=== PATIENT | male | born 1960 | race Caucasian/White ===

== ENCOUNTER 2016-09-27 16:48 | Inpatient (IN) | payer OTHER ==
[~2016-09-27] VITALS: Ht 172.7 cm; Wt 71.9 kg
[~2016-09-27 16:48] MED LIST: BUPR100SR PO; LIB25 PO
[2016-09-27] MEDS ORDERED: GABA-529 PO (17:06)
[2016-09-27] MEDS ORDERED: QUET25TA PO (17:06)
[2016-09-27 18:13] LABS: BASOPHILS % (AUTO) 0.8 % (0.0-2.0); EOSINOPHILS % (AUTO) 5.7 % (1.0-6.0); HEMATOCRIT 37.9 % (41-53); HEMOGLOBIN 12.7 g/dL (13.5-17.5); LYMPHOCYTES # (AUTO) 6.4 K/uL (1.0-4.8); LYMPHOCYTES % (AUTO) 65.6 % (22.0-44.0); MEAN CORPUSCULAR HEMOGLOBIN 31.6 pg (26.0-34.0); MEAN CORPUSCULAR HGB CONC 33.4 G/dL (31.0-37.0); MEAN CORPUSCULAR VOLUME 95 fL (80-100); MONOCYTES # (AUTO) 0.4 K/uL (0.1-1.0); MONOCYTES % (AUTO) 4.3 % (2.0-9.0); NEUTROPHILS # (AUTO) 2.3 K/uL (1.8-7.7); NEUTROPHILS % (AUTO) 23.6 % (40.0-70.0); RED BLOOD CELL COUNT(AUTO) 4.01 MIL/uL (4.50-5.90); RED CELL DISTRIBUTION WIDTH 15.7 % (11.5-14.5); WHITE BLOOD COUNT (AUTO) 9.7 K/uL (4.5-11.0)
[2016-09-27 18:24] LABS: ANION GAP 10 mmol/L (8-16); CALCIUM, TOTAL 8.2 mg/dL (8.8-10.5); CARBON DIOXIDE 25 mmol/L (22-29); CHLORIDE 103 mmol/L (98-107); CREATININE 0.81 mg/dL (0.60-1.30); GLOMERULAR FILTR. RATE CALC > 60 mL/min (>60); POTASSIUM 3.7 mmol/L (3.5-5.1); SODIUM SERUM 138 mmol/L (136-145); UREA NITROGEN, BLOOD 9 mg/dL (7-18)
[2016-09-27 18:25] LABS: PROTHROMBIN TIME 10.1 SEC (9.4-11.6)
[2016-09-27 18:49] LABS: ALANINE AMINOTRANSFERASE 27 U/L (12-78); ALBUMIN 3.1 g/dL (3.4-5.0); ASPARTATE AMINOTRANSFERASE 32 U/L (15-37); BILIRUBIN,TOTAL 0.3 mg/dL (0.1-1.0); CREATINE KINASE MB 1.4 ng/mL (0-5); CREATINE KINASE, TOTAL 159 U/L (39-308); TOTAL PROTEIN, SERUM 7.2 g/dL (6.4-8.2)
[2016-09-27 18:53] LABS: B-TYPE NATRIURETIC PEPTIDE 57 pg/mL (0-100)
[2016-09-27] MEDS ORDERED: MAGNESIUM SULFATE 2 GM, MVI, ADULT NO.1 WITH VIT K 10 ML, THIAMINE HCL 100 MG, FOLIC AC... IV ONE ×5 (19:00)
[2016-09-27] MEDS ORDERED: LORazepam 2 MG/ML VIAL IVP ONE (19:00)
[2016-09-27 19:30] LABS: PLATELET COUNT (AUTO) 82 K/uL (150-450)
[2016-09-27 20:25] LABS: THYROID STIMULATING HORMONE 1.03 uIU/mL (0.36-3.74)
[2016-09-27] MEDS ORDERED: SODIUM CHLORIDE 0.9% 1,000 ML IV ONE (21:30)
[2016-09-27] MEDS ORDERED: 0.9% SODIUM CHLORIDE 10 ML SYRINGE IVP PRN (21:45)
[2016-09-27] MEDS ORDERED: ACETAMINOPHEN 325 MG TABLET PO PRN (21:45)
[2016-09-27] MEDS ORDERED: ONDANSETRON HCL 4 MG/2 ML VIAL IVP PRN (21:45)
[2016-09-27] MEDS ORDERED: DILTIAZEM HCL 5 MG/ML 5 ML VIAL IVP ONE (23:30)
[2016-09-28] VITALS (7 sets, daily range): BP systolic 97–110; BP diastolic 56–68
[2016-09-28] MEDS ORDERED: PNEUMOCOCCAL VACCINE POLYVALENT 0.5 ML VIAL [PPSV23] IM ONE (04:00)
[2016-09-28] MEDS ORDERED: ChlordiazePOXIDE HCL 25 MG CAPSULE PO PRN (06:15)
[2016-09-28] MEDS ORDERED: DEXTROSE 50%-WATER 25 GM/50 ML SYRINGE IVP PRN (06:15)
[2016-09-28] MEDS ORDERED: INSULIN ASPART 100 UNITS/ML SQ PRN (06:15)
[2016-09-28 07:05] LABS: ALANINE AMINOTRANSFERASE 23 U/L (12-78); ALBUMIN 2.8 g/dL (3.4-5.0); ANION GAP 8 mmol/L (8-16); ASPARTATE AMINOTRANSFERASE 25 U/L (15-37); BILIRUBIN,TOTAL 0.5 mg/dL (0.1-1.0); CALCIUM, TOTAL 7.8 mg/dL (8.8-10.5); CARBON DIOXIDE 25 mmol/L (22-29); CHLORIDE 107 mmol/L (98-107); CREATININE 0.72 mg/dL (0.60-1.30); GLOMERULAR FILTR. RATE CALC > 60 mL/min (>60); POTASSIUM 3.5 mmol/L (3.5-5.1); SODIUM SERUM 140 mmol/L (136-145); TOTAL PROTEIN, SERUM 6.2 g/dL (6.4-8.2); UREA NITROGEN, BLOOD 7 mg/dL (7-18)
[2016-09-28 07:08] LABS: BASOPHILS # (AUTO) 0.04 K/uL (0.00-0.20); BASOPHILS % (AUTO) 0.5 % (0.0-2.0); EOSINOPHILS # (AUTO) 0.49 K/uL (0.00-0.70); EOSINOPHILS % (AUTO) 5.58 % (1.0-6.0); HEMATOCRIT 35.4 % (41-53); HEMOGLOBIN 11.9 g/dL (13.5-17.5); LYMPHOCYTES # (AUTO) 5.3 K/uL (1.0-4.8); LYMPHOCYTES % (AUTO) 60.2 % (22.0-44.0); MEAN CORPUSCULAR HGB CONC 33.8 G/dL (31.0-37.0); MEAN CORPUSCULAR VOLUME 95 fL (80-100); MONOCYTES # (AUTO) 0.4 K/uL (0.1-1.0); MONOCYTES % (AUTO) 4.6 % (2.0-9.0); NEUTROPHILS # (AUTO) 2.5 K/uL (1.8-7.7); NEUTROPHILS % (AUTO) 29.1 % (40.0-70.0); PLATELET COUNT (AUTO) 79 K/uL (150-450); RED BLOOD CELL COUNT(AUTO) 3.74 MIL/uL (4.50-5.90); RED CELL DISTRIBUTION WIDTH 16.2 % (11.5-14.5); WHITE BLOOD COUNT (AUTO) 8.7 K/uL (4.5-11.0)
[2016-09-28 08:48] LABS: GLUCOSE,POINT OF CARE 99 MG/DL (70-110)
[2016-09-28] MEDS: SODIUM CHLORIDE 0.9% 1,000 ML IV SCH ×2 (08:49→17:53)
[2016-09-28] MEDS: GABAPENTIN 100 MG CAPSULE PO SCH ×3 (08:50→20:27)
[2016-09-28] MEDS: MULTIVITAMINS, THERAPEUTIC TABLET PO SCH (08:50)
[2016-09-28] MEDS: BuPROPion HCL 100 MG SR TABLET PO SCH ×2 (08:50→20:28)
[2016-09-28] MEDS: FOLIC ACID 1 MG TABLET PO SCH (08:50)
[2016-09-28] MEDS: THIAMINE HCL 100 MG TABLET PO SCH (08:58)
[2016-09-28] MEDS: QUEtiapine FUMARATE 25 MG TABLET PO SCH ×3 (08:58→20:27)
[2016-09-28] MEDS ORDERED: THIAMINE HCL 100 MG/ML 2ML VIAL IM SCH (09:00)
[2016-09-28 14:52] LABS: GLUCOSE,POINT OF CARE 99 MG/DL (70-110)
[2016-09-29] MEDS: SODIUM CHLORIDE 0.9% 1,000 ML IV SCH (03:41)
[2016-09-29 04:41] VITALS: BP 105/59
[2016-09-29 06:37] LABS: BASOPHILS % (AUTO) 0.6 % (0.0-2.0); HEMATOCRIT 37.9 % (41-53); HEMOGLOBIN 12.4 g/dL (13.5-17.5); LYMPHOCYTES # (AUTO) 6.1 K/uL (1.0-4.8); LYMPHOCYTES % (AUTO) 60.9 % (22.0-44.0); MEAN CORPUSCULAR HEMOGLOBIN 31.3 pg (26.0-34.0); MEAN CORPUSCULAR HGB CONC 32.6 G/dL (31.0-37.0); MEAN CORPUSCULAR VOLUME 96 fL (80-100); MONOCYTES # (AUTO) 0.4 K/uL (0.1-1.0); MONOCYTES % (AUTO) 4.3 % (2.0-9.0); NEUTROPHILS # (AUTO) 2.9 K/uL (1.8-7.7); NEUTROPHILS % (AUTO) 29.2 % (40.0-70.0); PLATELET COUNT (AUTO) 83 K/uL (150-450); RED BLOOD CELL COUNT(AUTO) 3.95 MIL/uL (4.50-5.90); RED CELL DISTRIBUTION WIDTH 16.3 % (11.5-14.5); WHITE BLOOD COUNT (AUTO) 10.1 K/uL (4.5-11.0)
[2016-09-29 06:47] LABS: ANION GAP 9 mmol/L (8-16); CARBON DIOXIDE 25 mmol/L (22-29); CHLORIDE 107 mmol/L (98-107); CREATININE 0.74 mg/dL (0.60-1.30); GLOMERULAR FILTR. RATE CALC > 60 mL/min (>60); POTASSIUM 3.8 mmol/L (3.5-5.1); SODIUM SERUM 141 mmol/L (136-145); UREA NITROGEN, BLOOD 9 mg/dL (7-18)
[2016-09-29] MEDS ORDERED: ChlordiazePOXIDE HCL 25 MG CAPSULE PO PRN (07:00)
[2016-09-29 07:27] LABS: GLUCOSE,POINT OF CARE 93 MG/DL (70-110)
[2016-09-29 07:27] LABS: GLUCOSE,POINT OF CARE 128 MG/DL (70-110)
[2016-09-29 07:50] VITALS: BP 110/72
[2016-09-29] MEDS: QUEtiapine FUMARATE 25 MG TABLET PO SCH (09:00)
[2016-09-29] MEDS: FOLIC ACID 1 MG TABLET PO SCH (09:08)
[2016-09-29] MEDS: MULTIVITAMINS, THERAPEUTIC TABLET PO SCH (09:08)
[2016-09-29] MEDS: GABAPENTIN 100 MG CAPSULE PO SCH (09:08)
[2016-09-29] MEDS: BuPROPion HCL 100 MG SR TABLET PO SCH (09:08)
[2016-09-29] MEDS: ChlordiazePOXIDE HCL 25 MG CAPSULE PO SCH ×2 (09:08→14:03)
[2016-09-29] MEDS: THIAMINE HCL 100 MG TABLET PO SCH (09:08)
[2016-09-29 11:12] VITALS: BP 110/63
[2016-09-29 12:42] LABS: GLUCOSE,POINT OF CARE 98 MG/DL (70-110)
[2016-10-01] MEDS ORDERED: ChlordiazePOXIDE HCL 10 MG CAPSULE PO PRN (07:00)
[2016-10-01] MEDS ORDERED: ChlordiazePOXIDE HCL 10 MG CAPSULE PO SCH (09:00)
[2016-10-02] MEDS ORDERED: ChlordiazePOXIDE HCL 10 MG CAPSULE PO PRN (07:00)
== END 2016-09-29 14:55 | disposition home or self-care (01) | DRG 773 ==
LOC: EMS 16:56 → 5N 21:58
PROVIDERS: ADMIT Internal Medicine; ATTEND Internal Medicine
DX: F10.239 Alcohol dependence with withdrawal, unspecified (principal); F11.10 Opioid abuse, uncomplicated; E43 Unspecified severe protein-calorie malnutrition; R56.9 Unspecified convulsions; I95.9 Hypotension, unspecified; D64.9 Anemia, unspecified; R00.0 Tachycardia, unspecified; F99 Mental disorder, not otherwise specified; F32.9 Major depressive disorder, single episode, unspecified; F17.210 Nicotine dependence, cigarettes, uncomplicated; Y90.0 Blood alcohol level of less than 20 mg/100 ml; Z53.29 Procedure and treatment not carried out because of patient's decision for other reasons; F19.10 Other psychoactive substance abuse, uncomplicated; F20.9 Schizophrenia, unspecified; Z68.24 Body mass index [BMI] 24.0-24.9, adult; Z88.0 Allergy status to penicillin; Z28.21 Immunization not carried out because of patient refusal
CPT/HCPCS: 82962; 84443; 90471; 93005; 96361; 96365; 96366; 96375; 99285; G0480; J2060; J3411; J3475; J3490; J7030

== ENCOUNTER 2017-04-20 07:39 | Emergency (ER) | payer OTHER ==
[~2017-04-20] VITALS: Ht 165.1 cm; Wt 72.7 kg
[~2017-04-20 07:39] MED LIST changes: +GABA-529 PO; -LIB25 PO; +QUET25TA PO
[2017-04-20 07:58] VITALS: BP 104/73
[2017-04-20] MEDS ORDERED: PERTUSS(ACELL),DIPH,TET VAC/PF 0.5 ML VIAL IM ONE (08:15)
== END 2017-04-20 08:44 | disposition home or self-care (01) ==
LOC: EMS 07:41
DX: S61.214A Laceration without foreign body of right ring finger without damage to nail, initial encounter (principal); F17.210 Nicotine dependence, cigarettes, uncomplicated; Z88.0 Allergy status to penicillin; W45.8XXA Other foreign body or object entering through skin, initial encounter; Y93.89 Activity, other specified; Y92.89 Other specified places as the place of occurrence of the external cause; Y99.8 Other external cause status
CPT/HCPCS: 90471; 90715; 99283

== ENCOUNTER 2017-04-28 09:38 | Emergency (ER) | payer OTHER ==
[~2017-04-28] VITALS: Ht 172.7 cm; Wt 70.0 kg
[2017-04-28] MEDS ORDERED: SODIUM CHLORIDE 0.9% 1,000 ML IV ONE (10:30)
[2017-04-28 10:32] LABS: BASOPHILS # (AUTO) 0.08 K/uL (0.00-0.20); BASOPHILS % (AUTO) 1.3 % (0.0-2.0); EOSINOPHILS # (AUTO) 0.23 K/uL (0.00-0.70); EOSINOPHILS % (AUTO) 3.63 % (1.0-6.0); HEMATOCRIT 37.6 % (41-53); HEMOGLOBIN 12.4 g/dL (13.5-17.5); LYMPHOCYTES % (AUTO) 47.9 % (22.0-44.0); MEAN CORPUSCULAR HEMOGLOBIN 31.5 pg (26.0-34.0); MEAN CORPUSCULAR HGB CONC 32.9 G/dL (31.0-37.0); MEAN CORPUSCULAR VOLUME 96 fL (80-100); MONOCYTES # (AUTO) 0.6 K/uL (0.1-1.0); MONOCYTES % (AUTO) 9.2 % (2.0-9.0); NEUTROPHILS # (AUTO) 2.4 K/uL (1.8-7.7); NEUTROPHILS % (AUTO) 37.9 % (40.0-70.0); PLATELET COUNT (AUTO) 162 K/uL (150-450); RED BLOOD CELL COUNT(AUTO) 3.92 MIL/uL (4.50-5.90); RED CELL DISTRIBUTION WIDTH 18.6 % (11.5-14.5); WHITE BLOOD COUNT (AUTO) 6.2 K/uL (4.5-11.0)
[2017-04-28 10:52] LABS: ANION GAP 9 mmol/L (8-16); CALCIUM, TOTAL 9.3 mg/dL (8.8-10.5); CARBON DIOXIDE 29 mmol/L (22-29); CHLORIDE 104 mmol/L (98-107); CREATININE 0.99 mg/dL (0.60-1.30); GLOMERULAR FILTR. RATE CALC > 60 mL/min (>60); POTASSIUM 3.7 mmol/L (3.5-5.1); SODIUM SERUM 142 mmol/L (136-145); UREA NITROGEN, BLOOD 18 mg/dL (7-18)
[2017-04-28 10:57] LABS: ALANINE AMINOTRANSFERASE 42 U/L (12-78); ALBUMIN 3.6 g/dL (3.4-5.0); ASPARTATE AMINOTRANSFERASE 31 U/L (15-37); BILIRUBIN,TOTAL 0.4 mg/dL (0.1-1.0); TOTAL PROTEIN, SERUM 8.3 g/dL (6.4-8.2)
[2017-04-28 11:30] LABS: RBC MORPHOLOGY COMMENT ABNORMAL RBC MORPH
[2017-04-28] MEDS ORDERED: QUET200T PO (11:54)
[2017-04-28] MEDS ORDERED: GABA-533 PO (11:54)
[2017-04-28] MEDS ORDERED: KETOROLAC TROMETHAMINE 30 MG/ML VIAL IVP ONE (12:00)
[2017-04-28 12:04] LABS: GLUCOSE,POINT OF CARE 86 MG/DL (70-110)
[2017-04-28 12:36] VITALS: BP 98/71
== END 2017-04-28 13:22 | disposition home or self-care (01) ==
LOC: EMS 09:38
DX: R42 Dizziness and giddiness (principal); M79.641 Pain in right hand; M79.642 Pain in left hand; F17.210 Nicotine dependence, cigarettes, uncomplicated
CPT/HCPCS: 36415; 71010; 80053; 80307; 82948; 82962; 83690; 84484; 85025; 93005; 96361; 96374; 99285; G0480; J1885; J7030

== ENCOUNTER 2017-05-04 09:36 | Inpatient (IN) | payer OTHER ==
[~2017-05-04] VITALS: Ht 169.2 cm; Wt 78.0 kg
[~2017-05-04 09:36] MED LIST changes: -GABA-529 PO; +GABA-533 PO; +QUET200T PO; -QUET25TA PO
[2017-05-04] MEDS ORDERED: BUSP5TAB20 PO (09:52)
[2017-05-04 11:11] LABS: BASOPHILS % (AUTO) 1.4 % (0.0-2.0); EOSINOPHILS % (AUTO) 4.7 % (1.0-6.0); HEMATOCRIT 30.2 % (41-53); LYMPHOCYTES % (AUTO) 49.2 % (22.0-44.0); MEAN CORPUSCULAR HEMOGLOBIN 31.7 pg (26.0-34.0); MEAN CORPUSCULAR HGB CONC 33.2 G/dL (31.0-37.0); MEAN CORPUSCULAR VOLUME 95 fL (80-100); MONOCYTES # (AUTO) 0.6 K/uL (0.1-1.0); MONOCYTES % (AUTO) 6.1 % (2.0-9.0); NEUTROPHILS # (AUTO) 3.9 K/uL (1.8-7.7); NEUTROPHILS % (AUTO) 38.6 % (40.0-70.0); PLATELET COUNT (AUTO) 226 K/uL (150-450); RED BLOOD CELL COUNT(AUTO) 3.16 MIL/uL (4.50-5.90); RED CELL DISTRIBUTION WIDTH 18.8 % (11.5-14.5); WHITE BLOOD COUNT (AUTO) 10.2 K/uL (4.5-11.0)
[2017-05-04] MEDS ORDERED: BUSP10TA23 PO (11:20)
[2017-05-04 11:23] LABS: ANION GAP 5 mmol/L (8-16); CALCIUM, TOTAL 8.5 mg/dL (8.8-10.5); CARBON DIOXIDE 27 mmol/L (22-29); CHLORIDE 106 mmol/L (98-107); CREATININE 0.87 mg/dL (0.60-1.30); GLOMERULAR FILTR. RATE CALC > 60 mL/min (>60); POTASSIUM 4.4 mmol/L (3.5-5.1); SODIUM SERUM 138 mmol/L (136-145); UREA NITROGEN, BLOOD 16 mg/dL (7-18)
[2017-05-04 11:29] LABS: ALANINE AMINOTRANSFERASE 33 U/L (12-78); ASPARTATE AMINOTRANSFERASE 31 U/L (15-37); BILIRUBIN,TOTAL 0.3 mg/dL (0.1-1.0); CREATINE KINASE, TOTAL 70 U/L (39-308); TOTAL PROTEIN, SERUM 6.5 g/dL (6.4-8.2)
[2017-05-04] MEDS ORDERED: ALBUTEROL SULFATE 2.5 MG/0.5 ML NEB SOLUTION NEB ONE (11:30)
[2017-05-04] MEDS ORDERED: IPRATROPIUM BROMIDE 0.5 MG/2.5 ML NEB SOLUTION NEB ONE (11:30)
[2017-05-04 11:35] LABS: APPEARANCE,URINE CLEAR (CLEAR); GLUCOSE, URINE (UA) NEGATIVE (NEGATIVE); KETONES,URINE NEGATIVE (NEGATIVE); LEUKOCYTE ESTERASE ,URINE NEGATIVE (NEGATIVE); OCCULT BLOOD,URINE NEGATIVE (NEGATIVE); PH,URINE 6.5 (5.0-8.0); PROTEIN,URINE NEGATIVE (NEGATIVE)
[2017-05-04 11:35] LABS: B-TYPE NATRIURETIC PEPTIDE 513 pg/mL (0-100)
[2017-05-04 11:43] LABS: ADD UA MICROSCOPIC NO
[2017-05-04] MEDS ORDERED: CefTRIAXone 1 GM/DEXTROSE 50 ML IV ONE (12:15)
[2017-05-04] MEDS ORDERED: ALBUMIN HUMAN 25%-50GM/200ML 200 ML IV ONE (12:15)
[2017-05-04] MEDS ORDERED: AZITHROMYCIN 500 MG/NS 250 ML IV ONE (12:15)
[2017-05-04 14:12] VITALS: BP 94/61
[2017-05-04] MEDS ORDERED: ALBUTEROL SULFATE 2.5 MG/0.5 ML NEB SOLUTION NEB PRN (14:15)
[2017-05-04] MEDS ORDERED: MAGNESIUM HYDROXIDE SUSPENSION 30 ML UDCUP PO PRN (14:15)
[2017-05-04] MEDS ORDERED: MAGNESIUM SULFATE 2 GM in DEXTROSE 5%-WATER 50 ML IV PRN (14:15)
[2017-05-04] MEDS ORDERED: MAGNESIUM OXIDE 400 MG TABLET PO PRN (14:15)
[2017-05-04] MEDS ORDERED: MAGNESIUM SULFATE 4 GM/WATER 100 ML IV PRN (14:15)
[2017-05-04] MEDS ORDERED: ACETAMINOPHEN 325 MG TABLET PO PRN (14:15)
[2017-05-04 14:33] LABS: PROTHROMBIN TIME 10.9 SEC (9.4-11.6)
[2017-05-04] MEDS: PANTOPRAZOLE SODIUM 40 MG DR TABLET PO SCH (15:29)
[2017-05-04] MEDS: ASPIRIN 81 MG CHEWABLE TABLET PO SCH (15:29)
[2017-05-04] MEDS: MULTIVITAMINS WITH MINERALS, THERAPEUTIC TABLET PO SCH (15:29)
[2017-05-04 16:14] VITALS: BP 99/56
[2017-05-04 19:33] VITALS: BP 94/54
[2017-05-04] MEDS: DOCUSATE SODIUM 100 MG CAPSULE PO SCH (19:49)
[2017-05-04 23:41] VITALS: BP 108/63
[2017-05-05 04:46] VITALS: BP 115/63
[2017-05-05 07:17] VITALS: BP 104/56
[2017-05-05] MEDS: PANTOPRAZOLE SODIUM 40 MG DR TABLET PO SCH (08:51)
[2017-05-05] MEDS: DOCUSATE SODIUM 100 MG CAPSULE PO SCH ×2 (08:51→19:52)
[2017-05-05] MEDS: ASPIRIN 81 MG CHEWABLE TABLET PO SCH (08:52)
[2017-05-05] MEDS: MULTIVITAMINS WITH MINERALS, THERAPEUTIC TABLET PO SCH (08:52)
[2017-05-05 11:28] VITALS: BP 98/55
[2017-05-05] MEDS ORDERED: SODIUM CHLORIDE 0.9% 100 ML ONE (12:38)
[2017-05-05] MEDS: AZITHROMYCIN 500 MG/NS 250 ML IV SCH (12:44)
[2017-05-05] MEDS: CefTRIAXone 1 GM/DEXTROSE 50 ML IV SCH (13:54)
[2017-05-05 15:32] VITALS: BP 100/56
[2017-05-05 19:30] VITALS: BP 92/45
[2017-05-05 23:50] VITALS: BP 104/59
[2017-05-06 03:38] VITALS: BP 104/50
[2017-05-06 07:15] VITALS: BP 95/53
[2017-05-06] MEDS: ASPIRIN 81 MG CHEWABLE TABLET PO SCH (08:38)
[2017-05-06] MEDS: PANTOPRAZOLE SODIUM 40 MG DR TABLET PO SCH (08:38)
[2017-05-06] MEDS: DOCUSATE SODIUM 100 MG CAPSULE PO SCH (08:38)
[2017-05-06] MEDS: MULTIVITAMINS WITH MINERALS, THERAPEUTIC TABLET PO SCH (08:38)
[2017-05-06 08:44] VITALS: BP 108/54
[2017-05-06] MEDS ORDERED: SODIUM CHLORIDE 0.9% 100 ML ONE (11:29)
[2017-05-06] MEDS: AZITHROMYCIN 500 MG/NS 250 ML IV SCH (11:32)
[2017-05-06 11:39] VITALS: BP 88/53
[2017-05-06] MEDS ORDERED: SODIUM CHLORIDE 0.9% 500 ML IV ONE (12:00)
[2017-05-06 13:27] VITALS: BP 95/59
[2017-05-06] MEDS: CefTRIAXone 1 GM/DEXTROSE 50 ML IV SCH (13:54)
[2017-05-06 15:18] VITALS: BP 94/55
[2017-05-06] MEDS ORDERED: LEVO500 PO (16:29)
== END 2017-05-06 16:45 | disposition home or self-care (01) | DRG 140 ==
LOC: EMS 09:37 → 5S 13:19
PROVIDERS: ADMIT Internal Medicine; ATTEND Internal Medicine
DX: J44.0 Chronic obstructive pulmonary disease with (acute) lower respiratory infection (principal); J18.9 Pneumonia, unspecified organism; E46 Unspecified protein-calorie malnutrition; I95.9 Hypotension, unspecified; I50.9 Heart failure, unspecified; F20.9 Schizophrenia, unspecified; F10.20 Alcohol dependence, uncomplicated; Z87.891 Personal history of nicotine dependence; Z91.19 Patient's noncompliance with other medical treatment and regimen; Z88.0 Allergy status to penicillin; Z87.01 Personal history of pneumonia (recurrent)
CPT/HCPCS: 71020; 80307; 83605; 83735; 87040; 93005; 93306; 94640; 96365; 96366; 96375; 99285; J0456; J0696; J7040; J7050; P9046